=== PATIENT | female | born 1965 | race Two or more races ===

== ENCOUNTER 2016-04-10 21:49 | Emergency (ER) | payer MEDICAID, OTHER ==
[~2016-04-10] VITALS: Ht 162.6 cm; Wt 59.0 kg
[2016-04-10] MEDS ORDERED: QUETIAPINE FUMA25 MG ORAL (21:53)
[2016-04-10] MEDS ORDERED: TRAZODONE HCL150 MG ORAL (21:53)
[2016-04-10] MEDS ORDERED: ZOLOFT25 MG ORAL (21:53)
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
[2016-04-11 01:43] VITALS: BP 148/79
[2016-04-11 03:35] VITALS: BP 144/84
[2016-04-11 07:00] VITALS: BP 122/78
[2016-04-11 07:17] VITALS: BP 122/78
== END 2016-04-11 07:17 | disposition home or self-care (01) ==
LOC: EDBD 21:49 → EMR 22:20
DX: F10.120 Alcohol abuse with intoxication, uncomplicated (principal); F33.9 Major depressive disorder, recurrent, unspecified; Z59.0 Homelessness; Z88.2 Allergy status to sulfonamides
CPT/HCPCS: 99283